=== PATIENT | female | born 1990 ===

== ENCOUNTER 2016-07-14 12:58 | Inpatient (IN) | payer MEDICAID ==
[2016-07-14 13:30] VITALS: BMI 28.3
--- NOTE | 2016-07-14 13:34 | OBADHP ---
Datetime: 07/14/2016 13:30 Admit Comment, IP Provider: at 36.6 weeks came with c/o lof started at 9 am while she was walk ing, no ctxs,vb,+fm. obhx primi pmh denies med pnv all nkda psh denies soch denies a/p at 36+weeks pprom admit to l_d npo/ivf labs pain management cont ольга and efm antibiotics cytotec anticipate Pelvic Type - PN: Adequate Extremities - PN: Normal Abdomen - PN: Normal Back - PN: Normal Breast - PN: Not Done Lungs - PN: Normal Heart - PN: Normal Thyroid - PN: Not Done Neurologic - PN: Normal HEENT - PN: Normal General - PN: Normal FHR - Baseline A Provider: 130 Contraction Comments Provider: occ Comments, ACOG Physical Exam: gravid,non tender ext no edema,no calf ten sse pooling,+nitrazine ve closed IP Hx Assessment: The History has been Reviewed and is Current Vital Signs Provider: Reviewed; Within Normal Limits IP Chief Complaint: Suspected ruptured membranes NICHD Variability Prov Fetus A: Moderate 6-25bpm NICHD Accel Fetus A IP Provider: 15X15 FHR Category Provider Fetus A: Category I NICHD Decel Fetus A IP Provider: None Dilatation, Provider: 0 Effacement, Provider: 30 Station, Provider: -3 Genitourinary Exam: Normal DTRs - PN: Normal EGA AdmitDate IP: 36.6 IP Adm Impression: , intrauterine ; No Active Labor; Ruptured Membranes IP Admit Plan: Admit to unit; Initiate labor induction protocol
[2016-07-14 14:16] LABS: BASO % 0.4 % (0.0-2.0); EOS # 0.1 K/uL (0.0-0.7); HEMATOCRIT 33.2 % (34.0-47.0); LYMPH # 1.6 K/uL (1.0-4.3); LYMPH % 18.6 % (20.0-40.0); MEAN CORPUSCULAR HEMOGLOBIN 27.1 pg (27.0-31.0); MEAN CORPUSCULAR HGB CONC 33.1 g/dL (33.0-37.0); MEAN PLATELET VOLUME 9.3 fL (7.2-11.7); MONO # 0.7 K/uL (0.0-0.8); MONO % 7.6 % (0.0-10.0); NRBC % 0.1 % (0.0-2.0); RED CELL DISTRIBUTION WIDTH 15.6 % (11.5-14.5); WHITE BLOOD COUNT 8.6 K/uL (4.8-10.8)
[2016-07-14 14:23] LABS: CHLORIDE 105 mmol/L (98-107)
[2016-07-14 14:24] LABS: POTASSIUM 5.4 mmol/L (3.6-5.2); SODIUM 134 mmol/L (132-148)
[2016-07-14 14:26] LABS: ALKALINE PHOSPHATASE 136 U/L (38-126); ALT/SGPT 23 U/L (9-52); AST/SGOT 71 U/L (14-36); BILIRUBIN,TOTAL 1.2 mg/dL (0.2-1.3); BLOOD UREA NITROGEN 10 mg/dL (7-17); CARBON DIOXIDE 18 mmol/L (22-30); GFR AFRICAN-AMERICAN > 60; TOTAL PROTEIN 7.1 g/dL (6.3-8.3)
[2016-07-14 14:27] LABS: CALCIUM 8.3 mg/dl (8.6-10.4); GLUCOSE,RANDOM 94 mg/dL (65-105)
[2016-07-14 16:48] LABS: RBC URINE 1 /hpf (0-3); URINE BACTERIA OCC (<OCC); URINE BILIRUBIN NEGATIVE (NEGATIVE); URINE BLOOD NEGATIVE (NEGATIVE); URINE COLOR Yellow (YELLOW); URINE GLUCOSE (UA) NORMAL (Normal); URINE KETONE NEGATIVE (NEGATIVE); URINE LEUKOCYTE ESTERASE NEG Leu/uL (Negative); URINE PROTEIN NEGATIVE (NEGATIVE); URINE UROBILINOGEN NORMAL mg/dL (0.2-1.0); WBC URINE < 1 /hpf (0-5)
[2016-07-14] MEDS ORDERED: Oxytocin 30 UNIT 500 ML IV PRN (19:34)
[2016-07-14] MEDS ORDERED: Oxytocin 30 UNIT 500 ML IV ONE (19:35)
--- NOTE | 2016-07-14 19:38 | OBPN ---
Datetime: 07/14/2016 19:36 IP Progress Impression: Normal progression of labor IP Procedures: Sterile Vag Exam FHR - Baseline A Provider: 130 IP Progress Note Comment: pt was examined at bed side ve /-2 attempted to pit martinez ballon. start pitocin ampicillin at 9 pm anticipate Vital Signs Provider: Reviewed; Within Normal Limits NICHD Accel Fetus A IP Provider: 15X15 FHR Category Provider Fetus A: Category I NICHD Variability Prov Fetus A: Moderate 6-25bpm Dilatation, Provider: 1 Effacement, Provider: 60 Station, Provider: -2 Datetime: 07/14/2016 13:30 IP Informed Consent Obtain: Vaginal Delivery Contraction Comments Provider: occ NICHD Decel Fetus A IP Provider: None
[2016-07-14] MEDS: Lactated Ringer's 1,000 ML IV SCH (19:39)
[2016-07-14] MEDS ORDERED: Nalbuphine 20 mg/ml Inj (1 ml) IVP PRN (19:45)
--- NOTE | 2016-07-15 00:09 | OBPN ---
Datetime: 07/15/2016 00:07 IP Procedures Other: iupc IP Procedures: Sterile Vag Exam Contraction Comments Provider: q1-4 FHR - Baseline A Provider: 130 IP Progress Note Comment: pt was examined at bed side ve /-2 iupc placed cont pitocin anticipate NICHD Accel Fetus A IP Provider: 15X15 FHR Category Provider Fetus A: Category I NICHD Variability Prov Fetus A: Moderate 6-25bpm Dilatation, Provider: 1 Effacement, Provider: 60 Station, Provider: -2
[2016-07-15] MEDS ORDERED: Nalbuphine 20 mg/ml Inj (1 ml) ONE (02:11)
[2016-07-15] MEDS: Lactated Ringer's 1,000 ML IV SCH ×3 (02:18→21:31)
[2016-07-15] MEDS ORDERED: Sodium Citrate/Citric Acid 15 ml Sol PO ONE (05:54)
[2016-07-15] MEDS ORDERED: cefOXitin IV 2 gm in Dextrose 50 ML IVPB ONE (05:54)
[2016-07-15] MEDS ORDERED: Oxycodone/Acetaminophen 5/325 mg Tab PO PRN (05:55)
--- NOTE | 2016-07-15 05:58 | PCM.SURG1 ---
Surgeon's Initial Post Op Note - Surgeon's Notes Surgeon: dr zhao Configuration Management Architect: dr flores Type of Anesthesia: Spinal Anesthesia Administered By: dr ortega Pre-Operative Diagnosis: 26 yr at 37weeks failure to progress/pprom Operative Findings: see the op report Post-Operative Diagnosis: same with uterine atony Operation Performed: primary section and right ovarian cystectomy Specimen/Specimens Removed: fetus. placente. cord blood. right ovarian cyst Estimated Blood Loss: EBL {In ML}: 20 Blood Products Given: N/A Drains Used: No Drains Post-Op Condition: Good Date of Surgery/Procedure: 07/15/16 Time of Surgery/Procedure: 08:00
[2016-07-15] MEDS ORDERED: Phenylephrine 10 mg/ml Inj ONE (06:06)
[2016-07-15] MEDS ORDERED: Morphine 1 mg/ml preservative-free Inj(Duramorph) ONE (06:06)
[2016-07-15] MEDS ORDERED: Oxytocin 20 units in LR 2,000 ML IV ONE (07:03)
[2016-07-15] MEDS ORDERED: Oxytocin 10 Units/ml Inj ONE ×2 (07:11→07:26)
--- NOTE | 2016-07-15 07:49 | OBDS ---
DELIVERY PERSONNEL Delivery Doctor: Dennis Ghotra MD Scrub Nurse: Savita Marrero Telephone Solicitor: Salazar Greco RN Anesthesiologist: Cassia MATERNAL INFORMATION Delivery Anesthesia: Spinal Medications in Delivery: Pitocin 20 units IV Maternal Complications: Premature Rupture of Membranes Provider Comments: baby de;iverd in dop. cord arround neck and body plcemte to pathology. end clean cytotec 100 mcg/he,atbate/pitocin given 9/9 LABOR SUMMARY EDC: 08/05/2016 00:00 No. Babies in Womb: 1 Labor Anesthesia: IV Sedation LABOR INFORMATION Onset of Labor: 07/15/2016 06:21 Cervical Ripening Agents: Cytotec @ Oxytocin: Induction Group B Beta Strep: Negative Antibiotics # of Doses: 2 Antibiotics Time of Last Dose: 0300 Steroids Given: None Reason Steroids Not Administered: Not Applicable MEMBRANES Membranes Rupture Method: Spontaneous Rupture of Membranes: 07/14/2016 09:00 Length of Rupture (hrs): 22.07 Amniotic Fluid Color: Clear Amniotic Fluid Amount: Small Amniotic Fluid Odor: Normal STAGES OF LABOR Stage 3 hrs: 0 Stage 3 min: 1 Total Time in Labor hrs: 0 Total Time in Labor min: 44 CSECTION DELIVERY Primary Indication: failure to progress Secondary Indication: 22 hrs premature rupture membrane CSection Urgency: Non Elective CSection Incidence: Primary Labor: Labor Elective: Nonelective CSection Incision: Lower Uterine Transverse BABY A INFORMATION Delivery Date/Time: 07/15/2016 07:04 (Annotations: Data stored by [facility] on behalf of user) Method of Delivery: Born in Route : No : N/A Forceps: N/A Vacuum Extraction: N/A Shoulder Dystocia : No SHOULDER DYSTOCIA BABY A Infant Delivery Date/Time: 07/15/2016 07:04 (Annotations: Data stored by [facility] on behalf of user) PRESENTATION/POSITION BABY A Presentation: Cephalic Cephalic Presentation: Vertex Vertex Position: Left Occipital Posterior PLACENTA INFORMATION BABY A Placenta Delivery Time : 07/15/2016 07:05 Placenta Method of Delivery: Manual Removal Placenta Status: Delivered SCORES BABY A Heart Rate 1 min: >100 bpm Resp Effort 1 min: Good Cry Reflex Irritability 1 min: Cough or Sneeze or Pulls Away Muscle Tone 1 min: Active Motion Color 1 min: Body [place], Extremities Blue SCORE 1 MIN: 9 Heart Rate 5 min: >100 bpm Resp Effort 5 min: Good Cry Reflex Irritability 5 min: Cough or Sneeze or Pulls Away Muscle Tone 5 min: Active Motion Color 5 min: Body [place], Extremities Blue SCORE 5 MIN: 9 INFORMATION BABY A Gestational Age at Delivery: 37.0 Gestational Status: Term Outcome : Liveborn Infant Condition : Stable Sex: Female IDENTIFICATION/MEDS BABY A ID Band Number: [id number] ID Band Location: Left Leg; Left Arm Sensor Applied: Yes Sensor Number: [id number] Sensor Location : Cord Clamp Vitamin K Given : Aquamephyton 1 mg IM; Left Thigh Erythromycin Given: Given Both Eyes CORD INFORMATION BABY A No. Cord Vessels: 3 Nuchal Cord : Around Neck x1, Loose Nuchal Cord Other: body Cord Blood Taken: Yes Suction: Mouth; Nose
[2016-07-15] MEDS: Simethicone 80 mg Chewtab PO SCH ×3 (13:29→21:30)
[2016-07-15 17:07] LABS: HEMATOCRIT 23.7 % (34.0-47.0); LYMPH # 1.2 K/uL (1.0-4.3); LYMPH % 6.7 % (20.0-40.0); MEAN CELL VOLUME 81.4 fL (81.0-99.0); MEAN CORPUSCULAR HGB CONC 31.9 g/dL (33.0-37.0); MEAN PLATELET VOLUME 9.4 fL (7.2-11.7); MONO # 1.5 K/uL (0.0-0.8); MONO % 7.8 % (0.0-10.0); PLATELET COUNT 184 K/uL (130-400); WHITE BLOOD COUNT 18.7 K/uL (4.8-10.8)
[2016-07-15 18:23] LABS: LARGE PLATELETS PRESENT; NEUTROPHIL 80 % (50-75); SMUDGE CELLS PRESENT; TOTAL CELLS COUNTED 100
[2016-07-15] MEDS: Oxycodone/Acetaminophen 5/325 mg Tab PO PRN (21:29)
[2016-07-16] MEDS: Oxycodone/Acetaminophen 5/325 mg Tab PO PRN ×3 (02:21→13:30)
[2016-07-16 07:15] LABS: HEMATOCRIT 22.1 % (34.0-47.0); MEAN CORPUSCULAR HEMOGLOBIN 25.8 pg (27.0-31.0); MEAN CORPUSCULAR HGB CONC 31.5 g/dL (33.0-37.0); WHITE BLOOD COUNT 13.5 K/uL (4.8-10.8)
[2016-07-16] MEDS: Simethicone 80 mg Chewtab PO SCH ×4 (10:09→21:49)
--- NOTE | 2016-07-16 17:38 | OBPPN ---
Datetime: 07/16/2016 17:34 PP Pain Prov: Within normal limits PP Nausea Prov: Denies PP Flatus Prov: Yes PP Abdomen/Uterus Prov: Normal PP Lochia Prov: Normal PP Extremities Prov: Normal PP Comments Phys Exam Prov: fudus below umb ext no elsa incision clean and dry PP Impression Prov: Normal progression PP Plan Prov: Continue present management PP Progress Note Prov: pt was seen at bed side, pain under control,no n/v, toleraing deit,min lochia , flatus+ pod#1s/p c/s acute blood loss anemia ferous sulfate pain management encourage ambulation cont post op care Vital Signs Provider PP: Reviewed; Within Normal Limits
[2016-07-17] MEDS: Oxycodone/Acetaminophen 5/325 mg Tab PO PRN (00:31)
[2016-07-17 07:52] LABS: HEMATOCRIT 22.6 % (34.0-47.0); MEAN CELL VOLUME 82.1 fL (81.0-99.0); MEAN CORPUSCULAR HEMOGLOBIN 26.4 pg (27.0-31.0); MEAN CORPUSCULAR HGB CONC 32.1 g/dL (33.0-37.0); RED CELL DISTRIBUTION WIDTH 16.2 % (11.5-14.5); WHITE BLOOD COUNT 15.9 K/uL (4.8-10.8)
[2016-07-17 08:08] VITALS: BP 109/70; PULSE 98; RESP 18; TEMP 100.2; O2SAT 98
[2016-07-17] MEDS: Simethicone 80 mg Chewtab PO SCH ×2 (09:06→13:41)
--- NOTE | 2016-07-19 09:11 | OP ---
PROCEDURE DATE: 07/15/2016 PREOPERATIVE DIAGNOSES: ____ SURGEON: Dennis Ghotra MD ACID STRENGTH INSPECTOR SURGEON: Dr. Larry, who was present throughout the surgery for retraction, exposure and pus raudel at the time of the delivery. ANESTHESIOLOGIST: Dr. Antony. ANESTHESIA: Spinal. COMPLICATIONS: None. ESTIMATED BLOOD LOSS: 900. PROCEDURES PERFORMED: Primary section and right ovarian cystectomy. POSTOPERATIVE DIAGNOSES: ____ with uterine atony. PROCEDURE: After informed consent was obtained, the patient was brought to the operating room and pl aced on the table where spinal anesthesia was given. When anesthesia was found to be adequate, she w as prepped and draped in normal sterile fashion. Martinez catheter was inserted under sterile condition . Next, 2 cm above the pubic bone, a skin incision was made with a knife, subcutaneous with a Bovie. The fascia was incised and extended into the abdominal cavity. Bladder blade was placed. Bladder flap was created. The lower uterine segment incision was made with a knife, extended on both sides u sing curved Ochoa scissors. After baby delivered in a direct occiput posterior position, there was a cord around the baby neck and then a cord around the baby's body. The cord was reduced and the baby was handed to the awaiting dividend deposit entry clerk. Cord gas was taken and was sent to the pathology. Placenta was sent to pathology after removing it from the uterus. After that, uterus exteriorized, cleared o f all the clots and debris. Uterus was very atonic, so extra Pitocin was given after massaging. Aft er that it was still atonic so we gave Methergine and some massaging, and it was still atonic, so Hem dharmesh was given. After that, the uterus was a little better. Uterine incision was closed using 1-0 Vicryl in locking fashion, second layer closure with the same stitch. After that, on the right side of the ovary, there was a cyst on the right side ovary which looked very necrotic, thus a decision wa s made to do right ovarian cystectomy. Two Nithya clamps were placed. It was cut and it was sent to pathology. Then it was closed with 2-0 Vicryl interrupted fashion. It was hemostatic. The tube on the left side looked normal. After that, incision was looked back again, it was hemostatic, no bleed ing. Uterus returned back to abdominal cavity. Gutters were cleared of all the debris. Uterine inc ision was looked back again; it was hemostatic. The Interceed was placed. After that, 2-0 Vicryl w as used to close peritoneum, ____ muscle was closed with 2-0 Vicryl in nonlocking fashion, and the fa scia was closed using 1-0 Vicryl nonlocking fashion. The ____ and subcutaneous with 0 Vicryl interru pted fashion. Skin was closed using 2-0 Monocryl in a straight needle. The patient tolerated the pr ocedure well. Laps and instruments count correct x 2. Dennis Ghotra MD cc: [id number] TT: 07/16/2016 11:07:25 onofre
--- NOTE | 2016-08-02 23:46 | OBDCSUM ---
Datetime: 07/17/2016 14:50 Discharge Instructions, Provider: Routine instructions given Discharge Diagnosis, Provider: Term Delivered Contraception discussed, Prov: Yes Discharge Comment, Provider: S/P Section, Clinically Stable Discharge Diagnosis Prov Other: S/P Section, Clinically Stable
--- NOTE | 2016-08-02 23:48 | OBPPN ---
Datetime: 07/17/2016 06:46 PP Pain Prov: Within normal limits PP Nausea Prov: Denies PP Flatus Prov: Yes PP Abdomen/Uterus Prov: Normal PP Lochia Prov: Normal PP Extremities Prov: Normal PP C/S Incision Prov: Normal PP Comments Phys Exam Prov: fudus below umblicus ext mil edema,no calf ten incision clean and dry PP Impression Prov: Normal progression PP Plan Prov: Continue present management PP Progress Note Prov: pt was seen at bed side, pain under control, no vomiting, min lochia,flatus + ,voiding, ambulation. pt wants to go home this evening. plan s/p c/s pod#2. acute blood anemia stable to be dc home later this evening. perocet/motrin prn ferrous sulfate bid no sex f/u in clinic in 1week if any fever call pmd Vital Signs Provider PP: Reviewed; Within Normal Limits
== END 2016-07-17 16:23 | disposition home or self-care (01) | DRG 651 ==
LOC: C.EROB 12:58 → C.4D 13:34 → C.4M 07-15 10:54
PROVIDERS: ADMIT Specialist; ATTEND Specialist
PROC: 10D00Z1 Extraction of Products of Conception, Low, Open Approach (ICD-10-PCS; principal; 2016-07-15)
PROC: 0UB00ZZ Excision of Right Ovary, Open Approach (ICD-10-PCS; 2016-07-15)
DX: O42.013 Preterm premature rupture of membranes, onset of labor within 24 hours of rupture, third trimester (principal); O34.83 Maternal care for other abnormalities of pelvic organs, third trimester; O75.89 Other specified complications of labor and delivery; O62.1 Secondary uterine inertia; N83.201 Unspecified ovarian cyst, right side; O69.81X0 Labor and delivery complicated by cord around neck, without compression, not applicable or unspecified; N83.11 Corpus luteum cyst of right ovary; O69.82X0 Labor and delivery complicated by other cord entanglement, without compression, not applicable or unspecified; Z3A.36 36 weeks gestation of pregnancy; Z37.0 Single live birth

== ENCOUNTER 2016-07-21 20:33 | Observation (INO) | payer MEDICAID, OTHER ==
[2016-07-21 20:33] VITALS: BMI 28.3
--- NOTE | 2016-07-21 21:17 | C.PDOC ---
History Of Present Illness 26 Y/O FEMALE PRESENTS S/P 6 DAYS AGO, DISCHARGED FROM HOSPITAL 4 DAYS AGO, C/O ABDOMINAL PAIN, SUBJECTIVE FEVER, VOMITING FOR 3 DAYS. PT STATES SHE IS BREAST FEEDING, ABLE TO PASS GAS. DENIES DISCHARGE FROM SURGICAL SITE, URINARY SX, DIARRHEA. DR. SANDHU AWARE OF PT PRIOR TO ARRIVAL. Time Seen by Provider: 07/21/16 21:00 Chief Complaint (Nursing): Abdominal Pain History Per: Patient History/Exam Limitations: no limitations Onset/Duration Of Symptoms: Days Current Symptoms Are (Timing): Still Present Reports Recently: Hospitalized Past Medical History Reviewed: Historical Data, Nursing Documentation, Vital Signs Vital Signs: Last Vital Signs Temp 99.1 F 07/22/16 00:07 Pulse 92 H 07/22/16 00:07 Resp 20 07/22/16 00:07 BP 105/69 07/22/16 00:07 Pulse Ox 100 07/22/16 00:07 - Medical History PMH: No Chronic Diseases Surgical History: - [facility] Procedures EXCISION OF RIGHT OVARY, OPEN APPROACH (07/14/16) EXTRACTION OF POC, LOW CERVICAL, OPEN APPROACH (07/14/16) Family History: States: Unknown Family Hx - Social History Hx Alcohol Use: No Hx Substance Use: No - Immunization History Hx Tetanus Toxoid Vaccination: No Hx Influenza Vaccination: No Hx Pneumococcal Vaccination: No Review Of Systems Except As Marked, All Systems Reviewed And Found Negative. Constitutional: Positive for: Fever (SUBJECTIVE) Cardiovascular: Negative for: Chest Pain, Palpitations Respiratory: Negative for: Cough, Wheezing Gastrointestinal: Positive for: Vomiting, Abdominal Pain. Negative for: Diarrhea Genitourinary: Negative for: Vaginal Bleeding Skin: Negative for: Rash Physical Exam - Physical Exam Appears: Non-toxic, Other (IN MODERATE DISTRESS, POST-PARTEM) Skin: Warm, Dry Head: Atraumatic, Normacephalic Chest: Symmetrical Cardiovascular: Rhythm Regular Respiratory: No Rales, No Rhonchi, No Wheezing Gastrointestinal/Abdominal: Soft, Tenderness (DIFFUSE, SUPRAPUBIC), No Guarding , No Rebound, Other (HEALING SCAR, NO FLUCTUANCE) Back: Normal Inspection Extremity: Normal ROM, Capillary Refill (< 2 SEC. ) Neurological/Psych: Oriented x3, Normal Speech, Normal Cognition ED Course And Treatment - Laboratory Results Result Diagrams: 07/21/16 22:18 07/21/16 22:18 O2 Sat by Pulse Oximetry: 99 (RA) Pulse Ox Interpretation: Normal Progress - Re-Evaluation Re-evaluation Note: 07/21/16 21:15 D/W DR SANDHU: AWARE OF ER FINDINGS. CONCERN FOR POSSIBLE ILEUS. - Data Reviewed Data Reviewed: Lab, Diagnostic imaging - Continuity of Care Discussed pt. case with internal control consultant/specialty: Obstetrics/Gynecology ED OBSERVATION Discharge: Yes Date of observation admission: 07/21/16 Time of observation admission: 21:15 - Observation admission statement Patient is being placed in observation because:: ABD PAIN ,FEVER POST - Goals of Observation Goals of observation are:: NEG ACUTE ABD, OBGYN CLEAR - Progress Note Progress Note: 07/21/16 23:58 FEELS BETTER VSS. PT ALREADY W RX PERCOCET, IBUPROFEN. ADVISED LIMIT WHILE ON PERCOCET. FU DR SANDHU DW DR SANDHU AWARE OF CT REPORT. FU OFFICE Disposition Counseled Patient/Family Regarding: Studies Performed, Diagnosis, Need For Followup - Disposition Disposition: HOME/ ROUTINE Disposition Time: 00:00 Condition: GOOD - Clinical Impression Clinical Impression: Postoperative abdominal pain - Scribe Statement The provider has reviewed the documentation as recorded by the Scribmarisa Hopper All medical record entries made by the Samanthaibmarisa were at my direction and personally dictated by me. I have reviewed the chart and agree that the record accurately reflects my personal performance of the history, physical exam, medical decision making, and the department course for this patient. I have also personally directed, reviewed, and agree with the discharge instructions and disposition.
[2016-07-21] MEDS ORDERED: Sodium Chloride 0.9% 1,000 ML IV ONE (21:22)
[2016-07-21] MEDS ORDERED: Morphine 4 MG/ML VIAL ONE (22:15)
[2016-07-21] MEDS ORDERED: Sodium Chloride 0.9% 1,000 ML ONE (22:15)
[2016-07-21 22:32] LABS: BASO # 0.1 K/uL (0.0-0.2); BASO % 0.6 % (0.0-2.0); EOS # 0.2 K/uL (0.0-0.7); EOS % 1.9 % (0.0-4.0); HEMATOCRIT 25.4 % (34.0-47.0); LYMPH # 1.3 K/uL (1.0-4.3); LYMPH % 11.5 % (20.0-40.0); MEAN CELL VOLUME 82.1 fL (81.0-99.0); MEAN CORPUSCULAR HEMOGLOBIN 26.2 pg (27.0-31.0); MEAN CORPUSCULAR HGB CONC 31.9 g/dL (33.0-37.0); MEAN PLATELET VOLUME 8.1 fL (7.2-11.7); MONO % 8.5 % (0.0-10.0); NRBC % 0.2 % (0.0-2.0); RED CELL DISTRIBUTION WIDTH 16.5 % (11.5-14.5); WHITE BLOOD COUNT 11.3 K/uL (4.8-10.8)
[2016-07-21 22:36] LABS: CHLORIDE 102 mmol/L (98-107); POTASSIUM 4.6 mmol/L (3.6-5.2); SODIUM 138 mmol/L (132-148)
[2016-07-21 22:38] LABS: GFR AFRICAN-AMERICAN > 60
[2016-07-21 22:39] LABS: ALB/GLOB RATIO 0.9 (1.0-2.1); ALKALINE PHOSPHATASE 151 U/L (38-126); ALT/SGPT 41 U/L (9-52); AST/SGOT 55 U/L (14-36); BILIRUBIN,TOTAL 0.8 mg/dL (0.2-1.3); BLOOD UREA NITROGEN 11 mg/dL (7-17); CALCIUM 8.3 mg/dl (8.6-10.4); CARBON DIOXIDE 23 mmol/L (22-30); GLUCOSE,RANDOM 80 mg/dL (65-105); TOTAL PROTEIN 6.9 g/dL (6.3-8.3)
[2016-07-21] MEDS ORDERED: Iodixanol 320 MG/ML 100 ML BOTTLE IV ONE (22:50)
--- NOTE | 2016-07-21 23:53 | CT ---
EXAM: CT Abdomen and Pelvis With Intravenous Contrast CLINICAL HISTORY: 26 years old, female; Pain and signs and symptoms; Other: S/P ; Abdominal pain; Flank; Lower; Additional info: Abd pain S/P csect TECHNIQUE: Axial computed tomography images of the abdomen and pelvis with intravenous contrast. This CT exam was performed using one or more of the following dose reduction techniques: automated exposure control, adjustment of the mA and/or kV according to patient size, and/or use of iterative reconstruction technique. Coronal and sagittal reformatted images were created and reviewed. CONTRAST: 100 mL of visipaque 320 administered intravenously. COMPARISON: No relevant prior studies available. FINDINGS: Lower thorax: Trace dependent atelectasis. ABDOMEN: Liver: No acute findings. Gallbladder and bile ducts: The gallbladder is distended, without calcified stones. No significant intra- or extrahepatic biliary ductal dilation. Pancreas: Enhances homogeneously. No ductal dilation. No discrete mass. Spleen: No acute findings. Adrenals: No acute findings. Kidneys and ureters: No acute findings. No hydronephrosis or renal calculi. No discrete solid mass. PELVIS: Bladder: No acute findings. Reproductive: The uterus is distended, and enlarged extending to the level of the umbilicus, with adjacent inflammatory change, findings consistent with patient's history. A rim-enhancing V shaped fluid collection is identified within the vesicouterine pouch, possibly perioperative in origin coursing along the posterior dome of the bladder for 5 cm and extending to the anterior abdominal wall for approximately 3 cm. Appendix: The air filled appendix is of normal caliber (series 3, image 110; series 601, image 45). ABDOMEN and PELVIS: Stomach and bowel: No obstruction. No mucosal thickening. Peritoneum: As above. Lymph nodes: No pathologically enlarged lymph nodes. Vasculature: Unremarkable. Bones: No acute fracture. IMPRESSION: uterus with a V-shaped rim-enhancing fluid collection in the vesicouterine pouch, as detailed above. Gallbladder distention, without calcified stones or surrounding inflammation.
[2016-07-22 00:08] VITALS: BP 105/69; PULSE 92; RESP 20; TEMP 99.1
[2016-07-24 07:33] VITALS: O2SAT 99
== END 2016-07-22 00:06 | disposition home or self-care (01) ==
LOC: C.ER 20:33 → C.9OBSV 21:15
PROVIDERS: ADMIT Emergency Medicine; ATTEND Emergency Medicine
DX: O86.4 Pyrexia of unknown origin following delivery (principal)
CPT/HCPCS: 74177; 80053; 83690; 85025; 96361; 96374; 96375; 99285; G0378; J2270; J2405; J7040; Q9967